=== PATIENT | male | born 1955 | race Caucasian/White ===

== ENCOUNTER 2019-06-21 11:58 | Day surgery (SDC) | payer MEDICARE, BC ==
[~2019-06-21] VITALS: Ht 175.3 cm; Wt 112.4 kg
[2019-06-21] MEDS ORDERED: ASPI81CH PO (12:29)
[2019-06-21] MEDS ORDERED: METO50ER PO (12:34)
[2019-06-21] MEDS ORDERED: ENTA200 PO (12:34)
[2019-06-21] MEDS ORDERED: ROPI.25 PO (12:35)
[2019-06-21] MEDS ORDERED: SINEMET 25-1001 EACH (12:35)
[2019-06-21] MEDS ORDERED: VITAMIN D31000 UNIT PO (12:36)
[2019-06-21] MEDS ORDERED: ROSU10TA PO (12:36)
== END 2019-06-21 14:30 | disposition home or self-care (01) ==
LOC: ORSCSDS 11:58
PROVIDERS: Podiatrist Foot & Ankle Surgery
PROC: 0L8W0ZZ Division of Left Foot Tendon, Open Approach (ICD-10-PCS; principal; 2019-06-21 13:15)
PROC: 0SNQ0ZZ Release Left Toe Phalangeal Joint, Open Approach (ICD-10-PCS; principal; 2019-06-21 13:15)
DX: M20.42 Other hammer toe(s) (acquired), left foot (principal); I10 Essential (primary) hypertension; I48.91 Unspecified atrial fibrillation; G20 Parkinson's disease; Z79.899 Other long term (current) drug therapy; E66.01 Morbid (severe) obesity due to excess calories; Z68.36 Body mass index [BMI] 36.0-36.9, adult; G47.33 Obstructive sleep apnea (adult) (pediatric)
CPT/HCPCS: 93005; 93010; J2001; J2250; J2704; J3010; J7120

== ENCOUNTER 2025-07-08 20:05 | Emergency (ER) | payer OTHER, BC ==
[~2025-07-08] VITALS: Ht 175.3 cm; Wt 95.7 kg
[~2025-07-08 20:05] MED LIST: ASPI81CH PO; ENTA200 PO; METO50ER PO; ROPI.25 PO; ROSU10TA PO; SINEMET 25-1001 EACH; VITAMIN D31000 UNIT PO
[2025-07-08 20:23] VITALS: BP 115/73
[2025-07-09] MEDS ORDERED: RX Prepack 6 Tabs Oxycodone 5mg UD ONE (01:50)
== END 2025-07-09 02:05 | disposition home or self-care (01) ==
LOC: ER 20:05
DX: S62.617A Displaced fracture of proximal phalanx of left little finger, initial encounter for closed fracture (principal); W18.30XA Fall on same level, unspecified, initial encounter; Z79.82 Long term (current) use of aspirin; Z79.899 Other long term (current) drug therapy; Z88.0 Allergy status to penicillin
CPT/HCPCS: 26725; 73140; 99283-25; A9270